=== PATIENT | female | born 1945 | race Caucasian/White ===

== ENCOUNTER 2021-08-29 20:36 | Emergency (ER) | payer MEDICARE, OTHER ==
[2021-08-29 22:26] LABS: CORONAVIRUS COVID-19 NAA POSITIVE (NEGATIVE)
== END 2021-08-29 23:18 | disposition home or self-care (01) ==
LOC: JD.ED 20:36
DX: U07.1 COVID-19 (principal); I10 Essential (primary) hypertension
CPT/HCPCS: 0240U; 36415; 80053; 85025; 86140; 87651; 99283

== ENCOUNTER 2024-02-06 10:24 | Emergency (ER) | payer MEDICARE, OTHER ==
[2024-02-06] MEDS ORDERED: Sodium Chloride 0.9% 10 ML Syringe FLUSH PRN ×2 (11:38)
[2024-02-06] MEDS ORDERED: Iopamidol 612 MG/ML 100 ML Bottle IVPUSH ONE (11:42)
[2024-02-06] MEDS: Sodium Chloride 0.9% 500 ML IV SCH (11:53)
[2024-02-06 12:29] LABS: INR 1.03; PROTHROMBIN TIME 10.9 SECONDS (9.7-12.0)
[2024-02-06 12:32] LABS: A/G RATIO 0.9 (1-2); ALBUMIN 3.4 g/dl (3.4-5.0); ANION GAP 13.2 (5-15); BILIRUBIN TOTAL 0.9 mg/dL (0.2-1.0); CALCIUM 9.6 mg/dL (8.5-10.1); CREATININE 0.8 mg/dL (0.55-1.02); EST CRCL DRUG DOSING (CG) 50.85 mL/min; POTASSIUM,K 4.2 mEq/L (3.5-5.1); PROTEIN TOTAL,TP 7.4 g/dl (6.4-8.2)
[2024-02-06] MEDS: Iopamidol 612 MG/ML 100 ML Bottle IVPUSH ONE (13:05)
[2024-02-06] MEDS: Sodium Chloride 0.9% 10 ML Syringe FLUSH ONE (13:05)
== END 2024-02-06 14:20 | disposition home or self-care (01) ==
LOC: JD.ED 10:24
DX: K57.32 Diverticulitis of large intestine without perforation or abscess without bleeding (principal); I10 Essential (primary) hypertension; Z88.0 Allergy status to penicillin; Z88.8 Allergy status to other drugs, medicaments and biological substances
CPT/HCPCS: 36415; 74177; 80053; 82150; 83690; 85610; 96360; 99284; J7030; Q9967